=== PATIENT | female | born 1950 | race Caucasian/White ===

== ENCOUNTER 2016-09-29 15:40 | Emergency (ER) | payer MEDICARE, BC ==
[~2016-09-29] VITALS: Ht 152.4 cm; Wt 69.4 kg
[2016-09-29 15:40] VITALS: BP 134/83
--- NOTE | 2016-09-29 16:30 | NUR ---
PR MANAGER AT BEDSIDE
[2016-09-29] MEDS ORDERED: HYDROCODONE/APAP 10/325MG 1 EA TABLET ONE (17:59)
[2016-09-29] MEDS ORDERED: ONDANSETRON 4 MG TAB.RAPDIS ONE (17:59)
[2016-09-29] MEDS ORDERED: ONDANSETRON 4 MG TAB.RAPDIS SL ONE (18:00)
[2016-09-29] MEDS ORDERED: HYDROCODONE/APAP 10/325MG 1 EA TABLET PO ONE (18:00)
== END 2016-09-29 18:37 | disposition home or self-care (01) ==
LOC: ER 15:41
DX: S40.012A Contusion of left shoulder, initial encounter (principal); S20.212A Contusion of left front wall of thorax, initial encounter; S80.01XA Contusion of right knee, initial encounter; E03.9 Hypothyroidism, unspecified; I10 Essential (primary) hypertension; M19.90 Unspecified osteoarthritis, unspecified site; V43.52XA Car driver injured in collision with other type car in traffic accident, initial encounter; Y93.89 Activity, other specified; Y92.488 Other paved roadways as the place of occurrence of the external cause; Y99.8 Other external cause status
CPT/HCPCS: 71020; 73030; 73564; 73700; 99284; A4606; Q0162; Z7610

== ENCOUNTER 2017-10-17 15:22 | Emergency (ER) | payer OTHER, MEDICARE ==
[~2017-10-17] VITALS: Ht 165.1 cm; Wt 63.5 kg
[2017-10-17 15:39] VITALS: BP 151/77
[2017-10-17] MEDS ORDERED: KETOROLAC TROMETHAMINE INJ 30 MG/ML VIAL ONE (16:01)
[2017-10-17] MEDS: KETOROLAC TROMETHAMINE INJ 30 MG/ML VIAL IM ONE (16:05)
== END 2017-10-17 16:32 | disposition home or self-care (01) ==
LOC: ER 15:25
DX: M19.041 Primary osteoarthritis, right hand (principal); M25.511 Pain in right shoulder; I10 Essential (primary) hypertension; E03.9 Hypothyroidism, unspecified
CPT/HCPCS: A4606; J1885; Z7610